=== PATIENT | male | born 1975 | race Caucasian/White ===

== ENCOUNTER → 2020-12-01 | Outpatient (CLI) | payer BC ==
[~2020-12-01] MED LIST: ACHD5005 PO; CEPH500C PO; SRTR100T PO
[2020-12-01 07:54] LABS: HEMOGLOBIN 16.4 g/dL (13.3-17.7); MEAN PLATELET VOLUME 10.3 fL (9.0-12.2); WHITE BLOOD COUNT 5.5 10^3/uL (4.3-11.0)
[2020-12-01 08:24] LABS: ALANINE AMINOTRANSFERASE 50 U/L (0-55); ALBUMIN 4.2 GM/DL (3.2-4.5); ALKALINE PHOSPHATASE 103 U/L (40-136); BILIRUBIN,TOTAL 0.4 MG/DL (0.1-1.0); BUN/CREATININE RATIO 11; CALCIUM 8.9 MG/DL (8.5-10.1); CARBON DIOXIDE 26 MMOL/L (21-32); CHLORIDE 102 MMOL/L (98-107); CHOLESTEROL 203 MG/DL (< 200); CREATININE SERUM 1.09 MG/DL (0.60-1.30); GFR ESTIMATED > 60; GLUCOSE 110 MG/DL (70-105); HDL CHOLESTEROL 36 MG/DL (40-60); POTASSIUM 3.8 MMOL/L (3.6-5.0); SODIUM 139 MMOL/L (135-145); TOTAL PROTEIN 6.7 GM/DL (6.4-8.2); TRIGLYCERIDES 115 MG/DL (<150); VLDL CHOLESTEROL 23 MG/DL (5-40)
--- NOTE | 2020-12-01 09:32 | Diagnostic Imaging Report ---
INDICATION: ELEVATED LIVER ENZYMES TECHNIQUE: Multiple grayscale sonographic images were obtained of the right upper quadrant of the abdomen. CORRELATION STUDY: None FINDINGS: LIVER: There is uniform echotexture within the visualized portions of the liver. There is normal, hepatopedal direction of flow within the main portal vein. Liver length 17.6 cm. GALLBLADDER: The gallbladder demonstrates no definitive shadowing gallstones. No abnormal gallbladder wall thickening or pericholecystic fluid. COMMON BILE DUCT: Obscured by overlying bowel gas. PANCREAS: Largely obscured by overlying bowel gas. AORTA/IVC: Not well visualized. RIGHT KIDNEY: 10.4 x 5.6 x 5.3 cm. No hydronephrosis. OTHER: None. IMPRESSION: 1. Fairly limited right upper quadrant abdominal ultrasound evaluation. No definitive focal hepatic lesion. No definitive shadowing gallstones. Dictated by: Dictated on workstation # [id number]
== END ==
LOC: RAD 08:00
PROVIDERS: ATTEND Nurse Practitioner Family
DX: R94.5 Abnormal results of liver function studies (principal)
CPT/HCPCS: 36415; 76705; 80053; 80061; 84443; 85027

== ENCOUNTER → 2020-12-04 | Outpatient (CLI) | payer BC ==
--- NOTE | 2020-12-04 12:27 | Diagnostic Imaging Report ---
PROCEDURE: US Scrotum. TECHNIQUE: Multiple real-time grayscale images were obtained over the scrotum in various projections bilaterally. INDICATION: Left testicular pain. COMPARISON: None. FINDINGS: The left testicle measures 4.3 x 2.3 x 2.6 cm in size. Echogenicity is normal with no masses seen. Vascularity appears normal. The left epididymis appears normal with normal vascularity. There is no significant hydrocele and there is no varicocele. Imaged portions of the soft tissues of the left inguinal canal do not demonstrate a hernia. The right testicle measures 4.1 x 2.1 x 2.9 cm. Vascularity and echogenicity are normal. There are no masses. There is a minimal right hydrocele. The epididymis is not seen. IMPRESSION: 1. No left orchitis, epididymitis, or torsion. No left inguinal hernia. 2. Minimal right hydrocele. Dictated by: Dictated on workstation # [id number]
== END ==
LOC: RAD 09:24
PROVIDERS: ATTEND Nurse Practitioner Family
DX: N50.812 Left testicular pain (principal); N43.3 Hydrocele, unspecified
CPT/HCPCS: 76870